=== PATIENT | male | born 1980 | race Caucasian/White ===

== ENCOUNTER 2024-02-02 16:10 | Emergency (ER) | payer MEDICAID ==
[~2024-02-02] VITALS: Ht 157.5 cm; Wt 67.1 kg
[2024-02-02 16:37] VITALS: BP 112/79; PULSE 72; RESP 20; TEMP 98.1; O2SAT 98
[2024-02-02] MEDS ORDERED: BISM262T5 PO (17:12)
[2024-02-02] MEDS ORDERED: IMO2 PO (17:12)
[2024-02-02] MEDS ORDERED: ONDA-188 PO (17:12)
== END 2024-02-02 17:29 | disposition home or self-care (01) ==
LOC: MED 16:10
DX: A08.4 Viral intestinal infection, unspecified (principal); Z79.1 Long term (current) use of non-steroidal anti-inflammatories (NSAID); Z79.899 Other long term (current) drug therapy
CPT/HCPCS: 99283

== ENCOUNTER 2024-02-22 04:15 | Emergency (ER) | payer MEDICAID ==
[~2024-02-22] VITALS: Ht 180.3 cm; Wt 72.6 kg
[~2024-02-22 04:15] MED LIST: BISM262T5 PO; IMO2 PO; ONDA-188 PO
[2024-02-22 04:28] VITALS: PULSE 88; RESP 20; TEMP 98.5; O2SAT 98
[2024-02-22 05:16] VITALS: BP 114/80; PULSE 69; RESP 22; O2SAT 98
[2024-02-22] MEDS: NACL 0.9% 1,000 ML IV ONE (05:22)
[2024-02-22] MEDS: KETOROLAC 30 MG/ML VIAL IVP ONE (05:23)
[2024-02-22] MEDS: ONDANSETRON 4 MG/2 ML VIAL IVP ONE (05:24)
[2024-02-22 05:25] LABS: BASOPHILS % (AUTO) 0.8 % (0.0-2.0); EOSINOPHILS # (AUTO) 0.2 K/uL (0-0.4); EOSINOPHILS % (AUTO) 2.8 % (0.0-4.0); HEMOGLOBIN 13.1 g/dL (12.0-18.0); LYMPHOCYTES # (AUTO) 2.9 K/uL (2.0-11.5); LYMPHOCYTES % (AUTO) 48.4 % (20.5-51.1); MEAN CORPUSCULAR HEMOGLOBIN 31 pg (27-31); MEAN CORPUSCULAR HGB CONC 34 g/dL (33-37); MEAN CORPUSCULAR VOLUME 93.5 fL (80-94); MONOCYTES # (AUTO) 0.4 K/uL (0.8-1.0); MONOCYTES % (AUTO) 7.3 % (1.7-9.3); NEUTROPHILS # (AUTO) 2.4 K/uL (1.8-7.7); NEUTROPHILS % (AUTO) 40.7 % (42.2-75.2); RED BLOOD CELL COUNT(AUTO) 4.17 MIL/uL (4.20-6.10); RED CELL DISTRIBUTION WIDTH 13.3 % (11.6-13.7)
[2024-02-22 05:29] LABS: PLATELET COUNT (AUTO) 14 K/uL (140-450)
[2024-02-22 05:41] LABS: ANION GAP 14.7 (8-16); CARBON DIOXIDE 24.3 mmol/L (21-32)
[2024-02-22 05:42] LABS: CREATININE 0.9 mg/dL (0.6-1.3)
[2024-02-22 05:44] LABS: TOTAL BILIRUBIN 0.5 mg/dL (0.0-1.0); TOTAL PROTEIN, SERUM 7.6 g/dL (6.4-8.2)
[2024-02-22 05:45] LABS: BASOPHILS # (AUTO) 0.1 K/uL (0.00-0.22); BASOPHILS % (AUTO) 0.7 % (0.0-2.0); EOSINOPHILS # (AUTO) 0.3 K/uL (0-0.4); EOSINOPHILS % (AUTO) 2.8 % (0.0-4.0); HEMATOCRIT 41.5 % (36-52); HEMOGLOBIN 14.3 g/dL (12.0-18.0); LYMPHOCYTES # (AUTO) 2.7 K/uL (2.0-11.5); LYMPHOCYTES % (AUTO) 25.4 % (20.5-51.1); MEAN CORPUSCULAR HEMOGLOBIN 32 pg (27-31); MEAN CORPUSCULAR HGB CONC 35 g/dL (33-37); MEAN CORPUSCULAR VOLUME 91.7 fL (80-94); MONOCYTES # (AUTO) 0.7 K/uL (0.8-1.0); MONOCYTES % (AUTO) 6.5 % (1.7-9.3); NEUTROPHILS # (AUTO) 6.9 K/uL (1.8-7.7); NEUTROPHILS % (AUTO) 64.6 % (42.2-75.2); PLATELET COUNT (AUTO) 288 K/uL (140-450); RED BLOOD CELL COUNT(AUTO) 4.52 MIL/uL (4.20-6.10); RED CELL DISTRIBUTION WIDTH 13.2 % (11.6-13.7); WHITE BLOOD COUNT (AUTO) 10.7 K/uL (4.8-10.8)
[2024-02-22 05:51] LABS: APPEARANCE,URINE CLEAR (CLEAR); BILIRUBIN,URINE NEGATIVE (NEGATIVE); BLOOD, URINE TRACE-I (NEGATIVE); COLOR,URINE YELLOW (YELLOW); LEUKOCYTE ESTERASE ,URINE NEGATIVE (NEGATIVE); NITRITE, URINE NEGATIVE (NEGATIVE); PROTEIN,URINE TRACE (NEGATIVE); UGLUCOSE NEGATIVE (NEGATIVE); UROBILINOGEN,URINE 0.2 EU/dL (0.2 - 1)
[2024-02-22] MEDS ORDERED: IBUP-2218 PO (05:56)
[2024-02-22] MEDS ORDERED: ONDA-188 SL (05:56)
[2024-02-22 06:13] LABS: BACTERIA,URINE FEW /HPF (None Seen); SQUAMOUS EPITHELIAL CELL,UR 0-3 (FEW) /LPF (0-3 (FEW)); WBC,URINE 0-5 /HPF (0-5)
== END 2024-02-22 07:02 | disposition home or self-care (01) ==
LOC: MED 04:15
DX: R10.9 Unspecified abdominal pain (principal); R11.2 Nausea with vomiting, unspecified; Z79.1 Long term (current) use of non-steroidal anti-inflammatories (NSAID); Z79.899 Other long term (current) drug therapy
CPT/HCPCS: 36415; 74176; 80048; 80076; 81001; 83690; 85025; 96361; 96374; 96375; 99285; J1885; J2405; J7030